=== PATIENT | male | born 1995 | race Caucasian/White ===

== ENCOUNTER 2017-09-13 10:25 | Emergency (ER) | payer OTHER ==
[2017-09-13] MEDS ORDERED: FLUMAZENIL 0.5 MG INJ IV (11:00)
[2017-09-13 12:52] LABS: ADD MAN DIFF? NO
[2017-09-13 12:54] LABS: WHITE BLOOD COUNT 17.2 10^3/ul (4.8-10.8)
[2017-09-13 12:54] LABS: BASOPHIL # 0.1 10^3/ul (0.0-0.1); BASOPHILS % 0.3 % (0.0-2.0); HEMATOCRIT 45.8 % (42.0-52.0); HEMOGLOBIN 15.4 g/dl (14.0-18.0); LYMPHOCYTES # 1.1 10^3/ul (0.8-2.9); LYMPHOCYTES % 6.5 % (18.0-55.0); MEAN CORPUSCULAR HEMOGLOBIN 29.2 pg (29.0-33.0); MEAN CORPUSCULAR HGB CONC 33.6 g/dl (32.0-37.0); MEAN CORPUSCULAR VOLUME 86.9 fl (72.0-104.0); MEAN PLATELET VOLUME 9.7 fl (7.4-10.4); MONOCYTE # 0.8 10^3/ul (0.3-0.9); MONOCYTES % 4.9 % (0.0-13.0); NEUTROPHIL # 15.1 10^3/ul (1.6-7.5); NEUTROPHILS % 87.8 % (30.0-74.0); PLATELET COUNT 209 10^3/UL (140-415); RED BLOOD COUNT 5.27 10^6/ul (4.70-6.10); RED CELL DISTRIBUTION WIDTH 11.9 % (11.5-14.5)
[2017-09-13 13:17] LABS: ANION GAP 17 (8-16); BLOOD UREA NITROGEN 13 mg/dl (7-20); CALCIUM 9.9 mg/dl (8.4-10.2); CARBON DIOXIDE 25 mmol/L (21-31); CHLORIDE 104 mmol/L (97-110); CREATININE 0.91 mg/dl (0.61-1.24); GLUCOSE 97 mg/dl (70-220); POTASSIUM 4.1 mmol/L (3.5-5.1); SODIUM 142 mmol/L (135-144)
[2017-09-13] MEDS: LEVETIRACETAM 1000 MG (PMX) 100 ML IVPB (13:31)
== END 2017-09-13 14:14 | disposition home or self-care (01) ==
LOC: E/R 10:25
DX: G40.909 Epilepsy, unspecified, not intractable, without status epilepticus (principal); R40.2252 Coma scale, best verbal response, oriented, at arrival to emergency department; R40.2142 Coma scale, eyes open, spontaneous, at arrival to emergency department; R40.2362 Coma scale, best motor response, obeys commands, at arrival to emergency department
CPT/HCPCS: 36415; 70450; 80048; 85025; 96374; 99285-25